=== PATIENT | female | born 1975 | race Caucasian/White ===

== ENCOUNTER 2020-06-29 11:52 | Outpatient (CLI) | payer OTHER, SELFPAY ==
--- NOTE | ~2020-06-29 | MM_ITS ---
EXAMINATION: MM screening [facility] BI w [facility] HISTORY: Screening TECHNIQUE: Craniocaudal and mediolateral oblique 3-D tomosynthesis images were obtained and synthetic 2-D images were generated. CAD analysis was submitted and interpreted. COMPARISON: Comparison to multiple prior studies sequentially, with oldest reviewed study dated 09/21. BREAST PARENCHYMAL COMPOSITION: There are scattered areas of fibroglandular density. FINDINGS: There is no evidence of suspicious mass, calcification, or architectural distortion to sugg est malignancy in either breast. There has been no suspicious interval change. IMPRESSION: 1. No mammographic evidence of malignancy. 2. Recommend routine screening mammography in one year. BI-RADS Category 1: Negative Reviewed, dictated and finalized at location A.
== END 2020-06-29 11:53 | disposition home or self-care (01) ==
LOC: ANHIMG 11:56
PROVIDERS: PCP Family Medicine; Visit Provider Obstetrics & Gynecology
DX: Z12.31 Encounter for screening mammogram for malignant neoplasm of breast (principal)
CPT/HCPCS: 77063; 77067

== ENCOUNTER 2020-07-06 01:14 | Outpatient (CLI) | payer OTHER, SELFPAY ==
[2020-07-06 18:28] LABS: SARS-CoV-2 RNA PCR Negative
== END 2020-07-06 01:15 | disposition home or self-care (01) ==
LOC: ANHCOVIDDT 01:14
PROVIDERS: PCP Family Medicine; Visit Provider Orthopaedic Surgery
DX: Z01.812 Encounter for preprocedural laboratory examination (principal); Z20.828 Contact with and (suspected) exposure to other viral communicable diseases
CPT/HCPCS: 87635; C9803; U0003

== ENCOUNTER 2020-07-07 01:14 | Day surgery (SDC) | payer OTHER, SELFPAY ==
[2020-07-05 11:03] VITALS: BMI 42.0
[2020-07-07] VITALS (9 sets, daily range): BP systolic 137–164; BP diastolic 84–110; PULSE 68–95; RESP 10–18; TEMP 36.3–36.4; O2SAT 92–100
--- NOTE | ~2020-07-07 | XR_ITS ---
EXAMINATION: XR surgery orthopedic DATE: 07/07/2020 13:26 INDICATION: ORIF right ankle fracture TECHNIQUE: 5 fluoroscopic spot images of the right lower leg were obtained during procedure performed by Dr. Chavez. Radiologist was not present for the imaging or procedure. The amount of fluoroscopy time used during this procedure was 1.0 minutes. COMPARISON: 07/05/2020 FINDINGS: Reduction to essentially anatomic alignment of the fracture subluxation at the right ankle. The media l malleolar fractures fixed with a pair of cannulated lag screws. There are also a pair of tightrope type syndesmotic wire fixations extending across the distal metaphyseal regions of the tibia and fibu la. The mildly comminuted fractures of the proximal metadiaphyseal region of the right fibula remains unfixed with unchanged mild displacement and angulation. Joint spaces appear normal with a congruent ankle mortise. IMPRESSION: 1. Near-anatomic alignment at the right ankle post internal fixation of a medial malleolar fracture a nd syndesmotic fixation at the distal tibia and fibula. 2. Unchanged mild displacement and angulation and a mildly comminuted fractures of the proximal fibul a which remains unfixed. Reviewed, dictated and finalized at location A. IMPRESSION: 1. Near-anatomic alignment at the right ankle post internal fixation of a media l malleolar fracture and syndesmotic fixation at the distal tibia and fibula. 2. Unchanged mild displacement and angulation and a mildly comminuted fractures of the proximal fibula which remains unfixed.
--- NOTE | 2020-07-07 07:07 | WPDHPUPDATE1 ---
History and Physical Update Update Date/Time: 07/07/20 07:07 History and Physical has been reviewed, including an updated exam of the patient. There are NO changes in the patient's condition. Covid test negative. Risks, benefits, and alternatives have been discussed and questions answered. Patient agrees to proceed with procedure.
--- NOTE | 2020-07-07 09:55 | WPDANESEPPF ---
Anes - Initial Pre Proc Eval Procedure: Operation Date: 07/07/20 11:30 Proposed Procedures p Open Reduction Internal Fixation Right Ankle Fracture With Syndesmosis - Luke Chavez MD Date/Time: 07/07/20 09:55 Surgeon: Luke Chavez MD Pre Op Diagnosis: Rt Ankle Fx/ Syndesmosis Disruption Patient Data Age: 45 Gender: F Height: 5 ft Weight: 96.6 kg Allergies Allergy/AdvReac Type Severity Reaction Status Date / Time Penicillins Allergy Severe Rash Verified 07/07/20 09:30 hydrocodone AdvReac Severe nausea/vomi Verified 07/07/20 09:30 ting Home Medications Medication Instructions Recorded Confirmed Type cetirizine 10 mg tablet 10 mg PO DAILY 09/01/19 07/07/20 History atorvastatin 20 mg tablet 20 mg PO DAILY #90 tablet 02/09/20 07/07/20 Rx levothyroxine 25 mcg tablet 25 mcg PO DAILY #90 tablet 02/11/20 07/07/20 Rx tramadol 50 mg tablet 50 mg PO Q4H PRN #30 tablet 07/05/20 07/07/20 Rx Patient hx anesthesia problems: none Family hx anesthesia problems: none PMFSH Past Medical History Medical History (Updated 07/05/20 @ 15:12 by Chana De La Torre, RT(R)) Ankle syndesmosis disruption Asthma Bimalleolar fracture of right ankle Dizziness Fracture of proximal end of fibula High cholesterol Hypothyroidism Seasonal allergies Vertigo Vision abnormalities Family History Family History (Updated 07/05/20 @ 15:12 by Chana De La Torre RT(R)) Mother Hypertension Sibling Hypertension Grandparent Diabetes mellitus Other Family history of malignant neoplasm of breast Heart disease Social History Social History Smoking status: Never smoker Alcohol intake: current Drinks per week: 4 Spiritual care concerns: No Anes - Eval Final PreProcedure Day of Procedure 07/07/20 09:55 Patient weight: morbidly obese Heart: regular rate and rhythm Lungs: clear to auscultation Airway: Mallampati scale class III Neurological: alert and oriented Last oral intake: >/= 8 hours ASA classification: III Emergent: no Anesthetic plan: proceed Anesthesia type and monitoring: general LMA and standard monitoring Informed Consent: The patient's anesthetic plan and its attendant risks and benefits were discussed with the patient/family/POA. Questions were solicited and answers provided to the satisfaction of the patient/family/POA.
[2020-07-07] MEDS: LACTATED RINGERS 1,000 ML 30 ML IV CONT ×2 (10:08→13:44)
[2020-07-07] MEDS: KETOROLAC 15 MG/ML VIAL (*BKC) IV PUSH (10:09)
--- NOTE | 2020-07-07 11:34 | ECG_ITS ---
Measurements Intervals Likely Rate: 76 P: 29 SC: 158 QRS: 0 QRSD: 91 T: -4 QT: 377 QTc: 425 Interpretive Statements SINUS RHYTHM LOW QRS VOLTAGE IN PRECORDIAL LEADS BORDERLINE T WAVE ABNORMALITY- INFERIOR LEADS BORDERLINE ECG Electronically Signed On 07-07-2020 12:09:17 CDT by Cj Vu D.O.
[2020-07-07] MEDS: CLINDAMYCIN 900 MG/NS 50 ML 900 MG/50 ML PIGGYBACK 50 MG IVPB (11:52)
--- NOTE | 2020-07-07 13:49 | PM.PROC ---
Procedure Note - Detailed Date of procedure: 07/07/20 Pre-op diagnosis: Rt Ankle Fx/ Syndesmosis Disruption Post-op diagnosis: same Procedure performed: Open reduction internal fixation right medial malleolus fracture, syndesmosis disruption Description of procedure: Operative indications: Patient is a 45 year-old woman who sustained an injury to the right ankle. Radiographs show Medial malleolus fracture with displacement and posterior malleolus fracture. Widening of the ankle mortise noted. disruption of the distal syndesmosis with proximal fibula fracture. Patient presents for operative treatment. Full discussion of the risks, benefits and alternatives of surgery was had with the patient. Questions answered. Patient verbalizes understanding and wishes to proceed. What was done: After informed consent, the operative extremity was marked in the preoperative holding area. Patient received intravenous antibiotics. Patient was then taken to the operating room and underwent general anesthesia by the anesthesia team. Positioned supine on the operating room table with a soft bump under the ipsilateral hip. A time-out was performed confirming the patient, site of the surgery, operative plan. Lower extremity then prepped and draped in the usual sterile surgical fashion using ChloraPrep skin solution. Foot and ankle exsanguinated and a thigh tourniquet inflated to 250 mmHg. Longitudinal incision made over the lateral ankle distal fibula with a 15 blade knife. Hemostasis controlled with electrocautery. Full-thickness soft tissue flaps developed and the fascia was incised in line with the skin incision. Syndesmosis reduced and held with bone-holding clamp. Image intensification confirmed reduction of the proximal fibula fracture and the ankle mortise/ and syndesmosis. Fixation achieved with the Arthrex tight rope system. A 2 hole plate was positioned on the lateral fibula. Guide pins were then placed through the plate, fibula and across the tibia. Image intensification confirmed alignment and direction of the syndesmosis fixation. Tight ropes and passed after drilling and the suture button tight and laterally. Foot was held in dorsiflexion at the ankle during tightening. Image intensification confirmed placement of the hardware and reduction of the syndesmosis. Wounds thoroughly irrigated with antibiotic solution of the fascia repaired with 2 Vicryl interrupted suture. Subcutaneous tissue repaired with 3 0 Monocryl interrupted suture and skin repaired with 4 nylon running suture. Medial malleolus fracture then addressed. Longitudinal incision made with a 15 blade knife over the medial malleolus fracture. Hemostasis controlled with electrocautery. Fascia incised in line with skin incision. Periosteum cleared from the medial malleolus fracture. Medial side of the joint inspected and noted to have mild amount of trauma to the chondral surface. Thorough irrigation of the ankle joint and suctioned out. Fracture reduced and provisionally pinned. Fixation achieved with 4.0 mm partially threaded cancellous screws x2 placed in cannulated screw fashion. Image intensification confirmed reduction of the fracture and placement of the hardware. Stress of the ankle performed with good stability of the ankle mortise in all directions. Posterior malleolus noted to be reduced and stable. Wounds thoroughly irrigated with antibiotic solution. Fascia repaired with 00 Vicryl interrupted suture. Subcutaneous tissue repaired with 000 Monocryl interrupted suture and Skin approximated with Four O nylon running suture. Sterile dressings applied followed by bulky dressing and splint. Patient awoken from anesthesia, extubated and taken to the recovery room in stable condition. All sponge, needle and instrument counts correct at the end of the case. Palpable dorsalis pedis pulse noted prior to dressing. Implants: Arthrex 4.0 mm partially threaded cannulated screws x2 and Arthrex tight
--- NOTE | 2020-07-07 16:35 | SUR.PHASEI ---
DR ZAMORA AWARE OF BP. NO INTERVENTION AT THIS TIME. 1441 07/07/2020.
== END 2020-07-07 16:00 | disposition home or self-care (01) ==
PROVIDERS: PCP Family Medicine; Visit Provider Orthopaedic Surgery
PROC: (CPT 27814; principal; 2020-07-07 11:30)
DX: S82.841A Displaced bimalleolar fracture of right lower leg, initial encounter for closed fracture (principal); W17.89XA Other fall from one level to another, initial encounter; Z88.0 Allergy status to penicillin
CPT/HCPCS: 27814; 93005; 97161; C1713; C1769; J1100; J1170; J1885; J2250; J2405; J2704; J3010; J7120

== ENCOUNTER 2021-10-26 08:04 | Outpatient (CLI) | payer OTHER, SELFPAY ==
--- NOTE | ~2021-10-26 | MM_ITS ---
EXAMINATION: MM screening [facility] BI w [facility] HISTORY: Screening mammogram TECHNIQUE: Craniocaudal and mediolateral oblique 3-D tomosynthesis images were obtained and synthetic 2-D images were generated. CAD analysis was submitted and interpreted. COMPARISON: 06/29/2020, 05/14/2017, 05/12/2016 bilateral screening mammogram examinations BREAST PARENCHYMAL COMPOSITION: There are scattered areas of fibroglandular density. FINDINGS: There is no evidence of suspicious mass, calcification, or architectural distortion to sugg est malignancy in either breast. There has been no suspicious interval change. IMPRESSION: 1. No mammographic evidence of malignancy. 2. Recommend routine screening mammography in one year. BI-RADS Category 1: Negative Reviewed, dictated and finalized at location A. OPEDIC TECH
== END 2021-10-26 08:05 | disposition home or self-care (01) ==
LOC: ANHIMG 08:06
PROVIDERS: PCP Family Medicine; Visit Provider Obstetrics & Gynecology
DX: Z12.31 Encounter for screening mammogram for malignant neoplasm of breast (principal)
CPT/HCPCS: 77063; 77067

== ENCOUNTER 2022-12-26 08:18 | Outpatient (CLI) | payer OTHER, SELFPAY ==
--- NOTE | ~2022-12-26 | MM_ITS ---
EXAMINATION: MM screening [facility] BI w seema HISTORY: Screening mammogram TECHNIQUE: Craniocaudal and mediolateral oblique 3-D tomosynthesis images were obtained and synthetic 2-D images were generated. CAD analysis was submitted and interpreted. COMPARISON: 10/26/2021, 06/29/2020, 05/14/2017 BREAST PARENCHYMAL COMPOSITION: There are scattered areas of fibroglandular density. FINDINGS: No suspicious mass, calcification, or architectural distortion are identified in either aleyda ast to suggest malignancy. There has been no suspicious interval change. IMPRESSION: 1. No mammographic evidence of malignancy. 2. Recommend routine screening mammography in one year. BI-RADS Category 1: Negative Reviewed, dictated and finalized at location A. OR DESIGN ENGINEER
== END 2022-12-26 08:19 | disposition home or self-care (01) ==
LOC: ANHIMG 08:20
PROVIDERS: PCP Family Medicine; Visit Provider Obstetrics & Gynecology
DX: Z12.31 Encounter for screening mammogram for malignant neoplasm of breast (principal)
CPT/HCPCS: 77063; 77067

== ENCOUNTER 2024-01-03 00:05 | Day surgery (SDC) | payer BC, SELFPAY ==
[2023-12-25 11:52] VITALS: BMI 32.7
--- NOTE | 2024-01-01 08:53 | SUR.PREOP ---
Patient called regarding upcoming procedure. Reviewed preop instructions, appointment times, and procedure prep.
[2024-01-03 08:30] VITALS: BP 136/92; PULSE 79; RESP 18; TEMP 35.9; O2SAT 100; BMI 31.7
[2024-01-03] MEDS: LACTATED RINGERS 1,000 ML 150 ML IV CONT (08:50)
--- NOTE | 2024-01-03 09:28 | PM.HPGS ---
History of Present Illness History of Present Illness Consent: Risks, benefits, and alternatives have been discussed and questions answered. Patient agrees to proceed with procedure. Chief complaint: neoplasm screening Narrative: Ailyn Johnson is a 48 year old female here for first screening colonoscopy Review of Systems Review of Systems: All systems reviewed & are unremarkable except as noted in HPI and below PMFSH Past Medical History Medical History Acute bronchitis due to other specified organisms Alcohol use Ankle syndesmosis disruption Asthma Bimalleolar fracture of right ankle Blood pressure check BMI 31.0-31.9,adult BMI 38.0-38.9,adult BMI greater than 40 BMI greater than 40 Chronic GERD Dietary counseling and surveillance (07/10/16) Dizziness Elevated blood pressure reading Elevated glucose Encounter for general adult medical examination without abnormal findings Encounter for screening for diabetes mellitus Encounter for wellness examination Essential hypertension Folate deficiency Fracture of proximal end of fibula High cholesterol Hypothyroidism Mixed hyperlipidemia Other abnormality of red blood cells Right upper quadrant abdominal tenderness with rebound tenderness Screening for colon cancer Screening for thyroid disorder Seasonal allergies Vertigo Vision abnormalities Vitamin D deficiency Wheezy bronchitis Family History Family History Mother Hypertension Sibling Hypertension Obesity Grandparent Diabetes mellitus Father , ALS No problems noted. Other Family history of malignant neoplasm of breast Heart disease Social History Social History Smoking status: Never smoker Second hand tobacco smoke exposure: Yes Alcohol intake: current Drinks per week: 7 Substance use: never Substance use type: does not use Do You Feel Safe in your Home?: Yes Lack of Transportation: No Lack of Food: Never True Current Housing: I Have Housing Concerned About Future Housing: No Difficulty Paying Gas/Electric Bills: No Difficulty Paying for Meds: No Currently Unemployed: No Education: High School Diploma/GED Difficulty w/ Childcare or Family Care: No Living arrangements: with family Occupation/Education: occupation Additional occupation/education comments: accounting Spiritual care concerns: No Meds Home Medications and Allergies Home Medications Medication Instructions Recorded Confirmed Type cetirizine 10 mg tablet (Zyrtec) 10 mg PO DAILY 09/01/19 01/03/24 History famotidine 20 mg tablet (Pepcid) 20 mg PO QHS #30 tabs 05/01/22 01/03/24 Rx fluticasone propionate 50 1 spray intranasal DAILY 05/16/22 01/03/24 History mcg/actuation nasal spray,suspension (Flonase Allergy Relief) levothyroxine 75 mcg tablet See Rx Instructions .Route 10/30/23 01/03/24 Rx .COMPLEX #90 tabs lisinopril 10 1 tablet PO DAILY #90 tabs 10/30/23 01/03/24 Rx mg-hydrochlorothiazide 12.5 mg tablet atorvastatin 20 mg tablet 40 mg PO DAILY #90 tabs 11/20/23 01/03/24 Rx Allergies Allergy/AdvReac Type Severity Reaction Status Date / Time Penicillins Allergy Severe Rash Verified 01/03/24 08:37 hydrocodone AdvReac Severe nausea/vomi Verified 01/03/24 08:37 ting ibuprofen AdvReac Nausea and Verified 01/03/24 08:37 Vomiting Vital Signs Vital Signs - 24 hr 01/03/24 08:30 Temperature 96.7 F L Pulse Rate 79 Respiratory Rate 18 Blood Pressure 136/92 H Pulse Oximetry 100 Oxygen Delivery Room Air Exam Const: General: comfortable and no acute distress HENMT: Face/Nose/Sinus: Normal nares present Eyes: General: appearance normal, both eyes and all related structures Neck: Neck: no JVD Resp: Auscultation: clear to auscultation bilaterally
--- NOTE | 2024-01-03 09:33 | WPDANESEPPF ---
Anes - Initial Pre Proc Eval Procedure: Operation Date: 01/03/24 09:30 Proposed Procedures p Screening Colonoscopy - Kali Hernadez MD Date/Time: 01/03/24 09:33 Surgeon: Kali Hernadez MD Pre Op Diagnosis: neoplasm screening Patient Data Age: 48 Gender: F Height: 1.52 m Weight: 73.7 kg Last Vital Signs Temp 96.7 F L 01/03/24 08:30 Pulse 79 01/03/24 08:30 Resp 18 01/03/24 08:30 BP 136/92 H 01/03/24 08:30 Pulse Ox 100 01/03/24 08:30 O2 Del Method Room Air 01/03/24 08:30 Allergies Allergy/AdvReac Type Severity Reaction Status Date / Time Penicillins Allergy Severe Rash Verified 01/03/24 08:37 hydrocodone AdvReac Severe nausea/vomi Verified 01/03/24 08:37 ting ibuprofen AdvReac Nausea and Verified 01/03/24 08:37 Vomiting Home Medications Medication Instructions Recorded Confirmed Type cetirizine 10 mg tablet (Zyrtec) 10 mg PO DAILY 09/01/19 01/03/24 History famotidine 20 mg tablet (Pepcid) 20 mg PO QHS #30 tabs 05/01/22 01/03/24 Rx fluticasone propionate 50 1 spray intranasal DAILY 05/16/22 01/03/24 History mcg/actuation nasal spray,suspension (Flonase Allergy Relief) levothyroxine 75 mcg tablet See Rx Instructions .Route 10/30/23 01/03/24 Rx .COMPLEX #90 tabs lisinopril 10 1 tablet PO DAILY #90 tabs 10/30/23 01/03/24 Rx mg-hydrochlorothiazide 12.5 mg tablet atorvastatin 20 mg tablet 40 mg PO DAILY #90 tabs 11/20/23 01/03/24 Rx Patient hx anesthesia problems: none Family hx anesthesia problems: none Results Review: All pre-operative results and documents have been reviewed as part of the pre-operative evaluation. [facility] Past Medical History Medical History Acute bronchitis due to other specified organisms Alcohol use Ankle syndesmosis disruption Asthma Bimalleolar fracture of right ankle Blood pressure check BMI 31.0-31.9,adult BMI 38.0-38.9,adult BMI greater than 40 BMI greater than 40 Chronic GERD Dietary counseling and surveillance (07/10/16) Dizziness Elevated blood pressure reading Elevated glucose Encounter for general adult medical examination without abnormal findings Encounter for screening for diabetes mellitus Encounter for wellness examination Essential hypertension Folate deficiency Fracture of proximal end of fibula High cholesterol Hypothyroidism Mixed hyperlipidemia Other abnormality of red blood cells Right upper quadrant abdominal tenderness with rebound tenderness Screening for colon cancer Screening for thyroid disorder Seasonal allergies Vertigo Vision abnormalities Vitamin D deficiency Wheezy bronchitis Family History Family History Mother Hypertension Sibling Hypertension Obesity Grandparent Diabetes mellitus Father , ALS No problems noted. Other Family history of malignant neoplasm of breast Heart disease Social History Social History Smoking status: Never smoker Second hand tobacco smoke exposure: Yes Alcohol intake: current Drinks per week: 7 Substance use: never Substance use type: does not use Do You Feel Safe in your Home?: Yes Lack of Transportation: No Lack of Food: Never True Current Housing: I Have Housing Concerned About Future Housing: No Difficulty Paying Gas/Electric Bills: No Difficulty Paying for Meds: No Currently Unemployed: No Education: High School Diploma/GED Difficulty w/ Childcare or Family Care: No Living arrangements: with family Occupation/Education: occupation Additional occupation/education comments: accounting Spiritual care concerns: No Anes - Eval Final PreProcedure Day of Procedure 01/03/24 09:33 Patient weight: normal Heart: regular rate and rhythm Lungs: clear to auscultation Airway: Mal
[2024-01-03 09:54] VITALS: BP 126/84; PULSE 68; RESP 16; O2SAT 100
[2024-01-03 10:04] VITALS: BP 122/77; PULSE 63; RESP 14; O2SAT 100
[2024-01-03 10:14] VITALS: BP 132/78; PULSE 60; RESP 16; O2SAT 100
== END 2024-01-03 10:17 | disposition home or self-care (01) ==
PROVIDERS: PCP Family Medicine; Visit Provider Internal Medicine Gastroenterology
PROC: 0DJD8ZZ Inspection of Lower Intestinal Tract, Via Natural or Artificial Opening Endoscopic (ICD-10-PCS; CPT 45378; principal; 2024-01-03 09:30)
DX: Z12.11 Encounter for screening for malignant neoplasm of colon (principal); K57.30 Diverticulosis of large intestine without perforation or abscess without bleeding; K64.8 Other hemorrhoids; K21.9 Gastro-esophageal reflux disease without esophagitis; E03.9 Hypothyroidism, unspecified; E78.00 Pure hypercholesterolemia, unspecified
CPT/HCPCS: 45378; J2704; J7120

== ENCOUNTER 2024-01-07 15:00 | Outpatient (CLI) | payer BC, SELFPAY ==
--- NOTE | ~2024-01-07 | MM_ITS ---
EXAMINATION: MM screening [facility] BI w [facility] HISTORY: Screening TECHNIQUE: Craniocaudal and mediolateral oblique 3-D tomosynthesis images were obtained and synthetic 2-D images were generated. CAD analysis was submitted and interpreted. COMPARISON: Comparison to multiple prior studies sequentially, with oldest reviewed study dated 09/21. BREAST PARENCHYMAL COMPOSITION: Not dense: There are scattered areas of fibroglandular density. FINDINGS: There is no evidence of suspicious mass, calcification, or architectural distortion to sugg est malignancy in either breast. There has been no suspicious interval change. IMPRESSION: 1. No mammographic evidence of malignancy. 2. Recommend routine screening mammography in one year. BI-RADS Category 1: Negative Reviewed, dictated and finalized at location A.
== END 2024-01-07 15:01 | disposition home or self-care (01) ==
LOC: ANHIMG 15:01
PROVIDERS: PCP Family Medicine; Visit Provider Obstetrics & Gynecology
DX: Z12.31 Encounter for screening mammogram for malignant neoplasm of breast (principal)
CPT/HCPCS: 77063; 77067

== ENCOUNTER 2024-08-06 09:34 | Outpatient (CLI) | payer BC, SELFPAY ==
--- NOTE | 2024-08-06 09:40 | ECG_ITS ---
Test Date: 2024-08-06 10:00:35 Measurements Intervals [place] Rate: 66 P: 39 KS: 165 QRS: 18 QRSD: 92 T: 23 QT: 386 QTc: 407 Interpretive Statements SINUS RHYTHM LOW QRS VOLTAGE IN PRECORDIAL LEADS [QRS DEFLECTION < 1.0 mV IN CHEST LEADS] No previous ECG available for comparison Electronically Signed On 08-06-2024 10:22:27 CDT by Renetta Geronimo M.D.
[2024-08-06 10:17] LABS: Basophils Percent Auto 0.6 % (0.2-1.2); Eosinophils Absolute Auto 0.1 K/mm3 (0-0.3); Eosinophils Percent Auto 2.7 % (0-4.4); Hematocrit 42.6 % (37.0-47.0); Hemoglobin 14.2 g/dL (12.0-15.0); Immature Granulocyte Absolute 0.02 K/mm3 (0.00-0.031); Immature Granulocyte Percent A 0.4 % (0-0.5); Mean Corpuscular HGB Conc 33.3 g/dl (32-36); Mean Corpuscular Volume 104.9 fl (80-100); Mean Platelet Volume 11.3 fl (7.4-10.4); Monocytes Absolute Auto 0.7 K/mm3 (0.1-0.6); Monocytes Percent Auto 13.7 % (2.6-8.5); Neutrophils Absolute Auto 2.4 K/mm3 (1.3-6.7); Neutrophils Percent Auto 44.6 % (45.5-73.1); Platelet Count Result 178 k/mm3 (150-375); Red Blood Count 4.06 M/mm3 (4.2-5.4); Red Cell Distribution Width 12.3 % (11.5-14.5); White Blood Count 5.3 K/mm3 (4.5-10.0)
[2024-08-06 10:32] LABS: Anion Gap 9 mmol/L (4-12); Blood Urea Nitrogen 17 mg/dL (7-17); Calcium 9.7 mg/dL (8.4-10.2); Carbon Dioxide 28 mmol/L (22-30); Chloride 102 mmol/L (98-107); Estimated Glomerular Filt Rate > 60; Glucose 94 mg/dL (65-110); Potassium 4.1 mmol/L (3.4-5.0); Sodium 139 mmol/L (137-145)
== END 2024-08-06 09:35 | disposition home or self-care (01) ==
LOC: ANHSURGERY 09:39
PROVIDERS: Anesthesiology; PCP Family Medicine; Visit Provider Obstetrics & Gynecology
DX: N81.4 Uterovaginal prolapse, unspecified (principal); E78.5 Hyperlipidemia, unspecified; I10 Essential (primary) hypertension; Z79.899 Other long term (current) drug therapy
CPT/HCPCS: 36415; 80048; 85025; 86850; 86900; 86901; 93005

== ENCOUNTER 2024-08-14 00:33 | Day surgery (SDC) | payer BC, SELFPAY ==
[2024-08-05 13:50] VITALS: BMI 33.0
--- NOTE | 2024-08-05 13:51 | PC.NURSE ---
Report to the Outpatient Waiting Room, entrance under the green pavilion located off [facility], at time _0600_ on date _[id number]_. Planned Procedure Time: _0730_.? Time changes happen often and if your time is changed the preop area will call you the afternoon before. - You and your visitor will be asked to self-screen and do not enter if you have any COVID symptoms. Please call surgeon if you need to reschedule. - A mask is optional within the hospital at this time. Patients may have clear liquids (water, carbonated beverages, clear teas, apple juice) until 3 hours prior to surgery with a maximum of 20 ounces. - No food from midnight until time of surgery and no smoking Take only the following medications with a SIP of water on the morning of surgery____Levothyroxine and Flonase DO NOT STOP ANY OF YOUR OTHER PRESCRIPTION MEDICATIONS PRIOR TO SURGERY EXCEPT THE FOLLOWING Medications to discontinue per physician ___None Please no make-up, nail german, hairspray, perfume, deodorant, or body powder the day of surgery.? No jewelry (including any body piercings) or valuables the day of surgery, leave them at home.? Please take a shower or bath the night before, or the morning of, surgery with an antibacterial soap.? Wear comfortable, loose fitting clothing.? - Jewelry must be removed prior to entering the operating room.? Rings and piercings that are not removed may be cut off. - The hospital will not accept responsibility for valuables.? - Please leave all valuables, including medications, at home the day of surgery. If you are going home after surgery, a licensed courtesy driver must drive you home.? - NO public transportation without another adult if you receive anesthesia. - We recommend that an adult stay with you for 24 hours following discharge. - We also recommend that you do not drive, make important decision, drink alcoholic beverages, or take any drugs that were not prescribed by your health care provider for at least 24 hours after your discharge time. Follow any additional instructions given to you from your surgeon. Telephone instructions given to __Ailyn__and asked if any additional questions and then verbalized understanding. Patient advised to call surgeon office or pre surgery nurse liaison [phone] if any additional questions.
--- NOTE | 2024-08-13 07:19 | PM.IMHP ---
H&P: HPI History of Present Illness Date/Time: 08/13/24 07:19 Chief Complaint: Pelvic pain/uterine/uterine prolapse Narrative: Is a 48 female with fibroids for hysterectomy salpingectomy she has enlarged uterus pelvic pain prolapse. Risks , aspiration pneumonia, bleeding, transfusion perforation injury to bladder, ureters, or other internal organs with need for open laparotomy. She received the AC handout hysterectomy as the Mary handout she had all questions answered. She asked to proceed PMF Past Medical History Medical History Acute bronchitis due to other specified organisms Alcohol use Ankle syndesmosis disruption Asthma Bimalleolar fracture of right ankle Blood pressure check BMI 31.0-31.9,adult BMI 38.0-38.9,adult BMI greater than 40 BMI greater than 40 Chronic GERD Dietary counseling and surveillance (07/10/16) Dizziness Elevated blood pressure reading Elevated glucose Encounter for general adult medical examination without abnormal findings Encounter for screening for diabetes mellitus Encounter for wellness examination Essential hypertension Folate deficiency Fracture of proximal end of fibula High cholesterol Hypothyroidism Mixed hyperlipidemia Other abnormality of red blood cells Right upper quadrant abdominal tenderness with rebound tenderness Screening for colon cancer Screening for thyroid disorder Seasonal allergies Vertigo Vision abnormalities Vitamin D deficiency Wheezy bronchitis Family History Family History Mother Hypertension Sibling Hypertension Obesity Grandparent Diabetes mellitus Father , ALS No problems noted. Other Family history of malignant neoplasm of breast Heart disease Social History Social History Smoking status: Never smoker Second hand tobacco smoke exposure: Yes Alcohol intake: current Drinks per week: 7 Substance use: never Substance use type: does not use Do You Feel Safe in your Home?: Yes Lack of Transportation: No Lack of Food: Never True Current Housing: I Have Housing Concerned About Future Housing: No Difficulty Paying Gas/Electric Bills: No Difficulty Paying for Meds: No Currently Unemployed: No Education: High School Diploma/GED Difficulty w/ Childcare or Family Care: No Living arrangements: with family Occupation/Education: occupation Additional occupation/education comments: accounting Spiritual care concerns: No Meds Home Medications and Allergies Home Medications Medication Instructions Recorded Confirmed Type cetirizine 10 mg tablet (Zyrtec) 10 mg PO DAILY 09/01/19 08/05/24 History famotidine 20 mg tablet (Pepcid) 20 mg PO QHS #30 tabs 05/01/22 08/05/24 Rx fluticasone propionate 50 1 spray intranasal DAILY 05/16/22 08/05/24 History mcg/actuation nasal spray,suspension (Flonase Allergy Relief) atorvastatin 20 mg tablet 40 mg PO DAILY #90 tabs 11/20/23 08/05/24 Rx levothyroxine 75 mcg tablet See Rx Instructions .Route 04/27/24 08/05/24 Rx .COMPLEX #90 tabs lisinopril 10 See Rx Instructions .Route 04/27/24 08/05/24 Rx mg-hydrochlorothiazide 12.5 mg .COMPLEX #90 tabs tablet Allergies Allergy/AdvReac Type Severity Reaction Status Date / Time Penicillins Allergy Severe Rash Verified 08/05/24 13:45 hydrocodone AdvReac Severe nausea/vomi Verified 08/05/24 13:45 ting ibuprofen AdvReac Nausea and Verified 08/05/24 13:45 Vomiting Exam Const: General: cooperative, healthy appearing, comfortable and overweight Orientation/consciousness: oriented to person, oriented to place and oriented to time HENMT: Head: normal to inspection Resp: Effort & Inspection: normal respiratory effort Cardio: Rate: regular rate Rhythm: regular rhythm Heart sounds: S1 normal heart sound present and S2 normal heart sound present GI: Inspection: normal to inspection : External Female Exam: normal external appearance Speculum Exam - Vagina: normal appearance of the vagina Speculum Exam - Cervix: normal appearance of the cervix (Second-degree prolapse present) Bimanual exam- vagina & uterus: enlarged Bimanual Exam- Adnexa, other: normal adnexae Assessment and Plan Assessment and plan (1) Pelvic pain: Code(s): R10.2 - Pelvic and perineal pain Status: Acute (2) Uterine prolapse: Code(s): N81.4 - Uterovaginal prolapse, unspecified Status: Acute (3) Uterine fibroid: Code(s): D25.9 - Leiomyoma of uterus, unspecified Status: Acute Assessment and Plan: Proceed with robotic total vaginal hysterectomy and bilateral salpingectomy
[2024-08-14] VITALS (10 sets, daily range): BP systolic 114–137; BP diastolic 70–88; PULSE 66–102; RESP 12–20; TEMP 36.4–36.8; O2SAT 95–100
--- NOTE | 2024-08-14 06:25 | WPDHPUPDATE1 ---
History and Physical Update Update Date/Time: 08/14/24 06:25 History and Physical has been reviewed, including an updated exam of the patient. There are NO changes in the patient's condition. Risks, benefits, and alternatives have been discussed and questions answered. Patient agrees to proceed with procedure.
[2024-08-14] MEDS: ACETAMINOPHEN 500 MG TABLET 1000 MG PO ×4 (06:36→23:50)
--- NOTE | 2024-08-14 06:46 | P.PNAN_ITS ---
Anes - Initial Pre Proc Eval Procedure: Operation Date: 08/14/24 07:30 Proposed Procedures p Robotic Assisted Total Vaginal Hysterectomy with Bilateral Salpingectomy - Ricky Cruz MD Date/Time: 08/14/24 06:46 Surgeon: Ricky Cruz MD Pre Op Diagnosis: second degree proplase, dyspareunia, pelvic pain Patient Data Age: 49 Gender: F Height: 1.52 m Weight: 76.8 kg Allergies Allergy/AdvReac Type Severity Reaction Status Date / Time Penicillins Allergy Severe Rash Verified 08/14/24 06:16 hydrocodone AdvReac Severe nausea/vomi Verified 08/14/24 06:16 ting ibuprofen AdvReac Nausea and Verified 08/14/24 06:16 Vomiting Home Medications Medication Instructions Recorded Confirmed Type cetirizine 10 mg tablet (Zyrtec) 10 mg PO DAILY 09/01/19 08/14/24 History famotidine 20 mg tablet (Pepcid) 20 mg PO QHS #30 tabs 05/01/22 08/14/24 Rx fluticasone propionate 50 1 spray intranasal DAILY 05/16/22 08/14/24 History mcg/actuation nasal spray,suspension (Flonase Allergy Relief) atorvastatin 20 mg tablet 40 mg PO DAILY #90 tabs 11/20/23 08/14/24 Rx levothyroxine 75 mcg tablet See Rx Instructions .Route 04/27/24 08/14/24 Rx .COMPLEX #90 tabs lisinopril 10 See Rx Instructions .Route 04/27/24 08/14/24 Rx mg-hydrochlorothiazide 12.5 mg .COMPLEX #90 tabs tablet oxycodone-acetaminophen 5 mg-325 1 tablet PO Q4H PRN pain #20 tabs 08/14/24 Rx mg tablet (Endocet) Patient hx anesthesia problems: none Family hx anesthesia problems: none Results Review: All pre-operative results and documents have been reviewed as part of the pre- operative evaluation. [facility] Past Medical History Medical History Acute bronchitis due to other specified organisms Alcohol use Ankle syndesmosis disruption Asthma Bimalleolar fracture of right ankle Blood pressure check BMI 31.0-31.9,adult BMI 38.0-38.9,adult BMI greater than 40 BMI greater than 40 Chronic GERD Dietary counseling and surveillance (07/10/16) Dizziness Elevated blood pressure reading Elevated glucose Encounter for general adult medical examination without abnormal findings Encounter for screening for diabetes mellitus Encounter for wellness examination Essential hypertension Folate deficiency Fracture of proximal end of fibula High cholesterol Hypothyroidism Mixed hyperlipidemia Other abnormality of red blood cells Right upper quadrant abdominal tenderness with rebound tenderness Screening for colon cancer Screening for thyroid disorder Seasonal allergies Vertigo Vision abnormalities Vitamin D deficiency Wheezy bronchitis Family History Family History Mother Hypertension Sibling Hypertension Obesity Grandparent Diabetes mellitus Father , ALS No problems noted. Other Family history of malignant neoplasm of breast Heart disease Social History Social History Smoking status: Never smoker Second hand tobacco smoke exposure: Yes Alcohol intake: current Drinks per week: 7 Substance use: never Substance use type: does not use Do You Feel Safe in your Home?: Yes Lack of Transportation: No Lack of Food: Never True Current Housing: I Have Housing Concerned About Future Housing: No Difficulty Paying Gas/Electric Bills: No Difficulty Paying for Meds: No Currently Unemployed: No Education: High School Diploma/GED Difficulty w/ Childcare or Family Care: No Living arrangements: with family Occupation/Education: occupation Additional occupation/education comments: accounting Spiritual care concerns: No Anes - Eval Final PreProcedure Day of Procedure 08/14/24 06:46 Patient weight: obese Heart: regular rate and rhythm Lungs: clear to auscultation Airway: Mallampati scale class II Neurological: alert and oriented Last oral intake: >/= 8 hours ASA classification: III Emergent: no Anesthetic plan: proceed Anesthesia type and monitoring: general ETT and standard monitoring Results Review: All pre-operative results and documents have been reviewed as part of the pre- operative evaluation. Informed Consent: The patient's anesthetic plan and its attendant risks and benefits were discussed with the patient/family/POA. Questions were solicited and answers provided to the satisfaction of the patient/family/POA.
[2024-08-14] MEDS: LACTATED RINGERS 1,000 ML 30 ML IV CONT ×2 (06:50→08:37)
[2024-08-14] MEDS: KETOROLAC 15 MG/ML VIAL (*BKC) IV PUSH (07:17)
[2024-08-14] MEDS: ceFAZolin 2 GM/D5W 50 ML 2 GM/50 ML BAG IVPB (07:30)
--- NOTE | 2024-08-14 08:23 | W.PM.PROC2 ---
Procedure Note - Detailed Date of Procedure 08/14/24 Pre-op Diagnosis second degree proplase, dyspareunia, pelvic pain Post-op Diagnosis Same Procedure Performed Robotic total vaginal hysterectomy and bilateral salpingectomy Surgeon Ricky Cruz MD Anesthesia General Indications 49-year-old female with prolapse pain and despite Findings mildly enlarged uterus with second-degree prolapse. Normal-appearing ovaries and tubes. Description of Procedure The patient was prepped and draped in the normal sterile fashion placed in the dorsal lithotomy position. Under excellent general endotracheal anesthesia weighted speculum placed in posterior fornix vagina. Anterior lip of the cervix grasped with a single-tooth tenaculum. Uterus sounded to 8cm. Serial dilatation with fragmented dilators performed followed by passes the 8. JUVE and the 2. 0.5 cold cup. Next the 16 [place] catheter was placed in the bladder. The weighted speculum and single-tooth removed and the gloves were changed. Supraumbilical incision made the Veress needle passed in the abdomen. Abdomen filled with CO2 gas [id number]. The 8mm trocar advanced in the abdomen. Downside visualized no injury seen. Patient placed in 18? of Trendelenburg and right left lateral quadrant incisions made. 8Mm trocars advanced under direct visualization assuring no injury. Right upper quadrant incision made the 8mm trocar advanced under direct visualization assuring no injury. The robot was docked. Attention was turned to the console. The left round ligament grasped, burned, cut. Anteriorly bladder flap was formed by sharply dissecting the peritoneum and bringing this laterally to the opposite round ligament retracting the bladder caudally to the right round ligament this was clamped, burned, cut. Next the left fallopian tube was sharply dissected away from the ovarian complex and left attached to its uterine origin. In similar fashion drawn the the right fallopian tube was dissected away from the ovary and left attached to the Uterine origin. The left utero-ovarian ligament was skeletonized to conserve the left ovary. This was clamped, burned, cut and brought to level of previously cut round ligament. In similar fashion on the right, the right utero-ovarian ligament was skeletonized conserving the right ovary. This was clamped, burned, cut brought to the level of previously cut round ligament. Next the cardinal broad ligaments on the left were skeletonized hugging the cervix uterus clamping burning cutting until the uterine vessels could be seen on the left. These were individually clamped, burned, cut. In similar fashion on the right the cardinal broad ligaments were skeletonized clamping burning cutting and hugging the cervix uterus until the uterine vessels could be seen on right. These were individually clamped, burned, cut. Excellent blanching was seen and a colpotomy incision was made. Cervix uterus and tubes removed through the vagina. Vagina then closed with continuous running 0V lock from lateral edge to lateral edge back to the midline. Irrigation undertaken to clear blood loss estimated [id number]. Hemostasis was assured the robot was undocked. The gas removed from the abdomen. Trocars removed the incisions closed with 4-0 Monocryl glue. Patient was awakened went recovery in satisfactory condition. All sponge, needle, instrument counts were correct. There were no immediate complications Estimated Blood Loss 25 Drains No Packing No Pathology Yes Complications No immediate complications Condition Stable Disposition PACU
--- NOTE | 2024-08-14 08:28 | PM.DS ---
DS: Admitting Diagnosis Discharge Date 2023 Admitting Diagnosis uterine prolapse and pelvic pain DS: Discharge Diagnosis Discharge Diagnosis (1) Uterine fibroid: Code(s): D25.9 - Leiomyoma of uterus, unspecified Status: Acute (2) Uterine prolapse: Code(s): N81.4 - Uterovaginal prolapse, unspecified Status: Acute (3) Pelvic pain: Code(s): R10.2 - Pelvic and perineal pain Status: Acute DS: Summary Hospital Course Reason for hospitalization: patient was admitted for robotic total vaginal hysterectomy bilateral salpingectomy on 08/14/2024. Procedure was unremarkable. Hospital Course: Patient's hospital course unremarkable. Over 24hour stay she remained afebrile. She was up, voiding without difficulty, eating regular diet, ambulating, and generally without complaints. Time Spent with Patient Time attestation: Total time spent providing and/or coordinating discharge services: Exam Const: General: cooperative, healthy appearing and comfortable Nutritional Appearance: average body habitus Orientation/consciousness: oriented to person, oriented to place and oriented to time HENMT: Head: normal to inspection Resp: Effort & Inspection: normal respiratory effort Cardio: Rate: regular rate Rhythm: regular rhythm Heart sounds: S1 normal heart sound present and S2 normal heart sound present GI: Inspection: normal to inspection and incision ( Wounds are clean dry and intact) DS: Data Data Completed and Pending Pending studies at discharge: Pending at discharge 08/14/24 08:15 Surgical [PTH] Routine Discharge Plan Discharge Patient Disposition: Home, Self-Care Stand Alone Forms: General Discharge Instructions Follow-up/Referrals: Ricky Bianchi MD [Physician] - Discharge Medications: New oxycodone-acetaminophen [Endocet] 5-325 mg tablet 1 tablet PO Q4H PRN (Reason: pain) Qty: 20 0RF No Action fluticasone propionate [Flonase Allergy Relief] 50 mcg/actuation spray,suspension 1 spray intranasal DAILY Rx Instructions: administer into each nostril cetirizine [Zyrtec] 10 mg tablet 10 mg PO DAILY famotidine [Pepcid] 20 mg tablet 20 mg PO QHS Qty: 30 2RF atorvastatin 20 mg tablet 40 mg PO DAILY Qty: 90 3RF levothyroxine 75 mcg tablet See Rx Instructions .ROUTE .COMPLEX Qty: 90 1RF Dose Instruction: TAKE 1 TABLET BY MOUTH DAILY Rx Instructions: TAKE 1 TABLET BY MOUTH DAILY lisinopril-hydrochlorothiazide 10-12.5 mg tablet See Rx Instructions .ROUTE .COMPLEX Qty: 90 3RF Dose Instruction: TAKE 1 TABLET DAILY Rx Instructions: TAKE 1 TABLET DAILY
[2024-08-14] MEDS: fentaNYL CITRATE INJ (*CRX) 100 MCG/2 ML VIAL 25 MCG IV PUSH ×4 (09:05→09:21)
--- NOTE | 2024-08-14 09:40 | ADMGEN ---
This patient, Ailyn Johnson, was admitted to OB 2nd Floor Room 289-00. Patient/family oriented to hospital policies and general routines including ID bracelet, bed and alarms, visiting hours, pain management, procedures, bathroom and other care routines, personal items, smoking policy, room service/diet, and visiting hours. Information on how to activate the Rapid Response Team has been discussed. Patient/Family are encouraged to report perceived risks to care and to ask questions if they do not understand what they are told or what they should do.
[2024-08-14] MEDS: DEXTROSE 5%/LACTATED RINGERS 1,000 ML 125 ML IV CONT (10:04)
[2024-08-14] MEDS: ONDANSETRON INJ 4 MG/2 ML VIAL IV PUSH (10:08)
[2024-08-14] MEDS: oxyCODONE HCL (*CRX) 5 MG TAB IR PO ×2 (11:09→15:15)
[2024-08-14] MEDS: SIMETHICONE 80 MG TAB.CHEW PO ×2 (12:04→17:35)
[2024-08-14] MEDS: ENOXAPARIN 40 MG/0.4 ML SYRINGE SUB-Q (12:04)
[2024-08-14] MEDS: DOCUSATE SODIUM 100 MG CAPSULE PO ×2 (12:04→17:35)
[2024-08-14] MEDS: KETOROLAC 30 MG/ML VIAL (*BKC) IV PUSH ×3 (12:05→23:50)
[2024-08-15 05:00] VITALS: BP 122/74; PULSE 80; RESP 18; TEMP 36.6; O2SAT 98
[2024-08-15] MEDS: ACETAMINOPHEN 500 MG TABLET 1000 MG PO (05:00)
[2024-08-15 05:29] LABS: Basophils Percent Auto 0.2 % (0.2-1.2); Eosinophils Percent Auto 0.1 % (0-4.4); Hematocrit 34.4 % (37.0-47.0); Hemoglobin 11.9 g/dL (12.0-15.0); Immature Granulocyte Absolute 0.03 K/mm3 (0.00-0.031); Immature Granulocyte Percent A 0.3 % (0-0.5); Lymphocytes Absolute Auto 1.26 K/mm3 (0.9-3.2); Lymphocytes Percent Auto 11.6 % (18.3-44.2); Mean Corpuscular HGB Conc 34.6 g/dl (32-36); Mean Corpuscular Hemoglobin 34.8 pg (26-34); Mean Corpuscular Volume 100.6 fl (80-100); Mean Platelet Volume 11.5 fl (7.4-10.4); Monocytes Absolute Auto 1.2 K/mm3 (0.1-0.6); Monocytes Percent Auto 11.4 % (2.6-8.5); Neutrophils Absolute Auto 8.3 K/mm3 (1.3-6.7); Neutrophils Percent Auto 76.4 % (45.5-73.1); Platelet Count Result 148 k/mm3 (150-375); Red Blood Count 3.42 M/mm3 (4.2-5.4); Red Cell Distribution Width 12.1 % (11.5-14.5); White Blood Count 10.8 K/mm3 (4.5-10.0)
[2024-08-15] MEDS: SIMETHICONE 80 MG TAB.CHEW PO (07:21)
[2024-08-15] MEDS: DOCUSATE SODIUM 100 MG CAPSULE PO (07:22)
[2024-08-15 07:30] VITALS: BP 133/90; PULSE 73; RESP 16; TEMP 36.5; O2SAT 100
--- NOTE | 2024-08-15 09:12 | P.PNAN_ITS ---
Anes - Prog Note Post-Op Date/Time: 08/15/24 09:12 Cardiovascular status: normal Respiratory status: normal Airway patency: baseline Mental status: baseline Post-Op hydration status: normal Vital Signs: Last Vital Signs Temp 36.5 C 08/15/24 07:30 Pulse 73 08/15/24 07:30 Resp 16 08/15/24 07:30 BP 133/90 08/15/24 07:30 Pulse Ox 100 08/15/24 07:30 O2 Del Method Room Air 08/15/24 05:00 O2 Flow Rate 8 08/14/24 08:37 Pain Score (VAS): 12/28 I/O: Intake & Output 08/14/24 08/15/24 08/15/24 23:59 07:59 15:59 Intake Total 1886 Output Total 800 Balance 1086 Laboratory Tests 08/15/24 04:52 08/15/24 04:52 WBC 10.8 H RBC 3.42 L Hgb 11.9 L Hct 34.4 L MCV 100.6 H MCH 34.8 H MCHC 34.6 RDW 12.1 Plt Count 148 L MPV 11.5 H Immature Gran % (Auto) 0.3 Neut % (Auto) 76.4 H Lymph % (Auto) 11.6 L [place] % (Auto) 11.4 H Eos % (Auto) 0.1 Baso % (Auto) 0.2 Lymph # (Auto) 1.26 [place] # (Auto) 1.2 H Eos # (Auto) 0.0 Baso # (Auto) 0.0 Abs Immat Gran (auto) 0.03 Absolute Neuts (auto) 8.3 H Absolute Nucleated RBC 0.000 Nucleated RBC % 0.0 Post-procedural complaints: nausea ( after procedure, patient states nausea has resolved this morning. ) Patient Feedback: Patient satisfied with anesthetic care.
--- NOTE | 2024-08-15 11:09 | PM.GYNPNOP ---
[facility] DIRECTOR - A/P Assessment and plan (1) Uterine fibroid: Code(s): D25.9 - Leiomyoma of uterus, unspecified Status: Acute Assessment and Plan: A: POD#1, doing well. P: Home to f/u 2 weeks. (2) Uterine prolapse: Code(s): N81.4 - Uterovaginal prolapse, unspecified Status: Acute (3) Pelvic pain: Code(s): R10.2 - Pelvic and perineal pain Status: Acute Postoperative Procedures: Procedures Operation Date: 08/14/24 07:30 Actual Procedure Side Surgeon p Robotic Assisted Total Vaginal Hysterectomy with Bilateral Salpingectomy Bilateral Ricky Cruz MD Time Spent With Patient Time with patient: less than 15 minutes [facility]- PN:Subj Post-Op Subjective Date/time seen: 08/15/24 11:09 Interval history: Pain OK. Tolerating diet. Voiding. Would like to go home. Exam Narrative: AVSS I/O OK ABD soft, nontender. Incisions c/d/i. EXT nontender [facility] DIRECT[facility] - PN: Obj Data Vital Signs Vital Signs: Vital Signs - 24 hr 08/14/24 15:00 08/14/24 15:00 08/14/24 19:05 Temperature 36.5 C 36.8 C Pulse Rate 102 H 93 Respiratory Rate 16 18 Blood Pressure 114/70 120/73 Pulse Oximetry 96 99 Oxygen Delivery Room Air 08/14/24 19:05 08/14/24 23:50 08/15/24 05:00 Temperature 36.6 C 36.6 C Pulse Rate 89 80 Respiratory Rate 18 18 Blood Pressure 117/73 122/74 Pulse Oximetry 98 Oxygen Delivery Room Air 08/15/24 05:00 08/15/24 07:30 Temperature 36.5 C Pulse Rate 73 Respiratory Rate 16 Blood Pressure 133/90 Pulse Oximetry 100 Oxygen Delivery Room Air Intake/Output Intake/Output: Intake & Output 08/12/24 08/13/24 08/14/24 08/15/24 23:59 23:59 23:59 23:59 Intake Total 2986 240 Output Total 1200 Balance 1786 240 Meds/Results Medications: Active Medications Generic Name Dose Route Start Last Admin Trade Name Freq PRN Reason Stop Dose Admin Acetaminophen 1,000 mg 08/14/24 12:00 08/15/24 05:00 Acetaminophen 500 Mg Tablet PO 1,000 mg Q6HR RAÚL Administration Docusate Sodium 100 mg 08/14/24 09:34 08/15/24 07:22 Docusate Sodium 100 Mg Capsule PO 100 mg BID RAÚL Administration Enoxaparin Sodium 40 mg 08/14/24 09:34 08/14/24 12:04 Enoxaparin 40 Mg/0.4 Ml Syringe SUB-Q 40 mg DAILY RAÚL Administration Ibuprofen 600 mg 08/15/24 06:00 08/15/24 07:22 Ibuprofen 600 Mg Tablet PO Not Given Q6HR [facility] Naloxone HCl 0.1 mg 08/14/24 09:34 Naloxone Hcl 0.4 Mg/Ml Vial IV PUSH Q2M PRN Respiratory rate less than 10 Ondansetron HCl 4 mg 08/14/24 09:34 08/14/24 10:08 Ondansetron Inj 4 Mg/2 Ml Vial IV PUSH 4 mg Q6H PRN Administration Nausea And Vomiting Oxycodone HCl 5 mg 08/14/24 09:34 08/14/24 15:15 Oxycodone Hcl (*Crx) 5 Mg Tab Ir PO 5 mg Q4H PRN Administration Pain Rated 4-6 Oxycodone HCl 10 mg 08/14/24 09:34 Oxycodone Hcl (*Crx) 5 Mg Tab Ir PO Q6H PRN Pain Rated 7-10 Simethicone 80 mg 08/14/24 12:00 08/15/24 07:21 Simethicone 80 Mg Tab.Chew PO 80 mg TIDWM RAÚL Administration Labs 08/15/24 04:52 Labs: Laboratory Results - last 24 hr 08/15/24 04:52 WBC 10.8 H RBC 3.42 L Hgb 11.9 L Hct 34.4 L MCV 100.6 H MCH 34.8 H MCHC 34.6 RDW 12.1 Plt Count 148 L MPV 11.5 H Immature Gran % (Auto) 0.3 Neut % (Auto) 76.4 H Lymph % (Auto) 11.6 L [place] % (Auto) 11.4 H Eos % (Auto) 0.1 Baso % (Auto) 0.2 Lymph # (Auto) 1.26 [place] # (Auto) 1.2 H Eos # (Auto) 0.0 Baso # (Auto) 0.0 Abs Immat Gran (auto) 0.03 Absolute Neuts (auto) 8.3 H Absolute Nucleated RBC 0.000 Nucleated RBC % 0.0
--- NOTE | 2024-08-15 11:10 | PM.DS ---
DS: Admitting Diagnosis Discharge Date 08/15/24 Admitting Diagnosis Uterine fibroid Prolapse Pelvic pain DS: Discharge Diagnosis Discharge Diagnosis (1) Uterine fibroid: Code(s): D25.9 - Leiomyoma of uterus, unspecified Status: Acute (2) Uterine prolapse: Code(s): N81.4 - Uterovaginal prolapse, unspecified Status: Acute (3) Pelvic pain: Code(s): R10.2 - Pelvic and perineal pain Status: Acute DS: Summary Hospital Course Hospital Course: Admitted on the date of scheduled surgery. See op note. She did well and was able to go home on POD1. DS: Data Data Completed and Pending Pending studies at discharge: Pending at discharge 08/14/24 08:15 Surgical [PTH] Routine Labs on day of discharge: Labs from last 24 hours 08/15/24 04:52 WBC 10.8 H RBC 3.42 L Hgb 11.9 L Hct 34.4 L MCV 100.6 H MCH 34.8 H MCHC 34.6 RDW 12.1 Plt Count 148 L MPV 11.5 H Immature Gran % (Auto) 0.3 Neut % (Auto) 76.4 H Lymph % (Auto) 11.6 L [place] % (Auto) 11.4 H Eos % (Auto) 0.1 Baso % (Auto) 0.2 Lymph # (Auto) 1.26 [place] # (Auto) 1.2 H Eos # (Auto) 0.0 Baso # (Auto) 0.0 Abs Immat Gran (auto) 0.03 Absolute Neuts (auto) 8.3 H Absolute Nucleated RBC 0.000 Nucleated RBC % 0.0 Discharge Plan Discharge Patient Disposition: Home, Self-Care Discharge Instructions: Call or return if temperature above 100.4? F, increased abdominal pain, increased vaginal bleeding or any new problems. Stand Alone Forms: General Discharge Instructions Follow-up/Referrals: Ricky Bianchi MD [Physician] - 2 Weeks Discharge Medications: New oxycodone-acetaminophen [Endocet] 5-325 mg tablet 1 tablet PO Q4H PRN (Reason: pain) Qty: 20 0RF Continued fluticasone propionate [Flonase Allergy Relief] 50 mcg/actuation spray,suspension 1 spray intranasal DAILY Rx Instructions: administer into each nostril cetirizine [Zyrtec] 10 mg tablet 10 mg PO DAILY famotidine [Pepcid] 20 mg tablet 20 mg PO QHS Qty: 30 2RF atorvastatin 20 mg tablet 40 mg PO DAILY Qty: 90 3RF levothyroxine 75 mcg tablet See Rx Instructions .ROUTE .COMPLEX Qty: 90 1RF Dose Instruction: TAKE 1 TABLET BY MOUTH DAILY Rx Instructions: TAKE 1 TABLET BY MOUTH DAILY lisinopril-hydrochlorothiazide 10-12.5 mg tablet See Rx Instructions .ROUTE .COMPLEX Qty: 90 3RF Dose Instruction: TAKE 1 TABLET DAILY Rx Instructions: TAKE 1 TABLET DAILY
== END 2024-08-15 11:35 | disposition home or self-care (01) ==
LOC: ANHSURGERY 06:28 → ANHOB2 09:43
PROVIDERS: PCP Family Medicine; Visit Provider Obstetrics & Gynecology
PROC: (CPT 58552; principal; 2024-08-14 07:30)
DX: N81.2 Incomplete uterovaginal prolapse (principal); N94.10 Unspecified dyspareunia; R10.2 Pelvic and perineal pain; N70.11 Chronic salpingitis; N80.03 Adenomyosis of the uterus; N83.8 Other noninflammatory disorders of ovary, fallopian tube and broad ligament; N87.9 Dysplasia of cervix uteri, unspecified; N88.8 Other specified noninflammatory disorders of cervix uteri; I10 Essential (primary) hypertension; E78.2 Mixed hyperlipidemia; E03.9 Hypothyroidism, unspecified; K21.9 Gastro-esophageal reflux disease without esophagitis; J45.909 Unspecified asthma, uncomplicated; E55.9 Vitamin D deficiency, unspecified
CPT/HCPCS: 58552; S2900; 36415; 85025; 88307; A9270; J0690; J1100; J1650; J1885; J2003; J2250; J2405; J2704; J3010; J7030; J7120; J7121

== ENCOUNTER 2024-08-31 14:35 | Outpatient (CLI) | payer BC, SELFPAY ==
--- NOTE | ~2024-08-31 | XR_ITS ---
XR hand LT min 3V Ordering provider: Papo Drew NP History: . M79.642 - Pain in left hand . Comparison: None. FINDINGS: BONES: Boxers fracture is noted with fracture in the distal metaphysis of the fifth metacarpal bone. Angulation is seen in the area of about 90 degrees. No other fractures noted. JOINT SPACES: Well maintained. SOFT TISSUES: Unremarkable. IMPRESSION: Boxer's fracture. Reviewed, dictated and finalized at location A. D OPERATOR IMPRESSION: Boxer's fracture.
== END 2024-08-31 14:36 | disposition home or self-care (01) ==
LOC: MICIMG 14:37
PROVIDERS: PCP Family Medicine
DX: S62.397A Other fracture of fifth metacarpal bone, left hand, initial encounter for closed fracture (principal); X58.XXXA Exposure to other specified factors, initial encounter
CPT/HCPCS: 73130

== ENCOUNTER 2024-09-09 01:23 | Day surgery (SDC) | payer BC, SELFPAY ==
[2024-09-08 10:39] VITALS: BMI 32.7
--- NOTE | 2024-09-08 10:50 | PC.NURSE ---
Report to the Outpatient Waiting Room, entrance under the green pavilion located off [facility], at time _11:30am on date _09/09/24 ____. Planned Procedure Time: _1:30pm .? Time changes happen often and if your time is changed the preop area will call you the afternoon before. - You and your visitor will be asked to self-screen and do not enter if you have any COVID symptoms. Please call surgeon if you need to reschedule. - A mask is optional within the hospital at this time. Patient to have No food from midnight until time of surgery and no smoking. This includes no chewing gum, candy or mints. Take only the following medications with a SIP of water on the morning of surgery: _Levothyroxine w sip H20 Only DO NOT STOP ANY OF YOUR OTHER PRESCRIPTION MEDICATIONS PRIOR TO SURGERY EXCEPT THE FOLLOWING Medications to discontinue per physician ___None Date to take last dose None Please no make-up, nail chinese, hairspray, perfume, deodorant, or body powder the day of surgery.? No jewelry (including any body piercings) or valuables the day of surgery, leave them at home.? Please take a shower or bath the night before, or the morning of, surgery with an antibacterial soap.? Wear comfortable, loose fitting clothing.? - Jewelry must be removed prior to entering the operating room.? Rings and piercings that are not removed may be cut off. - The hospital will not accept responsibility for valuables.? - Please leave all valuables, including medications, at home the day of surgery. If you are going home after surgery, a licensed security patrol driver must drive you home.? - NO public transportation without another adult if you receive anesthesia. - We recommend that an adult stay with you for 24 hours following discharge. - We also recommend that you do not drive, make important decision, drink alcoholic beverages, or take any drugs that were not prescribed by your health care provider for at least 24 hours after your discharge time. Follow any additional instructions given to you from your surgeon. Telephone instructions given to _patient and asked if any additional questions and then verbalized understanding. Patient advised to call surgeon office or pre surgery nurse liaison [phone] if any additional questions.
[2024-09-09] VITALS (8 sets, daily range): BP systolic 113–154; BP diastolic 62–90; PULSE 58–78; RESP 11–18; TEMP 36.1–36.3; O2SAT 100; BMI 33.3
--- NOTE | ~2024-09-09 | XR_ITS ---
EXAMINATION: XR surgery orthopedic DATE: 09/09/2024 12:06 INDICATION: left fifth metacarpal fracture fixation TECHNIQUE: 3 fluoroscopic images of the left hand were obtained during procedure performed by Dr. Josue mireles. Radiologist was not present for the imaging or procedure. The amount of fluoroscopy time use d during this procedure was 0.7 minutes. COMPARISON: 04/30/2024 FINDINGS: Interval reduction and internal cannulated compression screw fixation of the distal diaphys eal fracture of the left fifth metacarpal which is now in near anatomic alignment with minimal residu al palmar angulation. The compression screw has been placed percutaneously over a wire which extends from the dorsal head of the metacarpal across the fifth carpometacarpal joint with distal tip in the hamate. No other fractures identified. Joint spaces are otherwise unremarkable. IMPRESSION: 1. Near-anatomic alignment post closed reduction and compression screw fixation of a boxer's fracture at the distal diaphysis of the left fifth metacarpal. See procedure note for further detail. Reviewed, dictated and finalized at location B. LAYER IMPRESSION: 1. Near-anatomic alignment post closed reduction and compression screw fixation of a boxer's fracture at the distal diaphysis of the left fifth metacarpal. Se nancy procedure note for further detail.
--- NOTE | 2024-09-09 07:01 | WPDHPUPDATE1 ---
History and Physical Update Update Date/Time: 09/09/24 07:01 Patient seen and examined in pre-operative holding area. No interval change in medical history or symptoms. Patient recalls previous discussion of benefits and alternatives to procedure. Continues to desire to proceed with left fifth metacarpal fracture closed possible open reduction and fixation . Reviewed procedure, post-op expectations and risks including but not limited to bleeding, infection, injury to tendon/nerve/vessel, decreased hand function, stiffness, RSD, no change or worsening of symptoms, malunion, nonunion, hardware complications. I discussed the possible use of assistants and their participation in the case. Patient stated understanding and signed the consent form wishing to proceed.
--- NOTE | 2024-09-09 07:02 | P.OP_ITS ---
Procedure Note - Detailed Date of Procedure 09/09/24 Pre-op Diagnosis Left Boxer Fx Post-op Diagnosis Same Procedure Performed ORIF left fifth metacarpal fracture Surgeon Mara Brugess MD Rn Observation milton leon pa-c Anesthesia General Description of Procedure INFORMED CONSENT: The patient was seen and examined and marked in the pre-op area.? The patient signed the consent form. PROCEDURE IN DETAIL:The patient taken back to OR on the stretcher in supine position. Time out performed with anesthesia, surgeon and staff agreeing on patient's name site and surgery to be performed SCDs were placed on the lower extremities and inflated. A tourniquet was placed on {left} upper extremity and antibiotics given IV After anesthesia administered sedation I injected {5}cc 1%lido and 0.5% marcaine plain at the operative site The?{left upper extremity}?was prepped and draped in sterile fashion the??{left upper extremity} was? exsanguinated with Esmarch bandage and tourniquet inflated to 250mmHg The c-arm was draped and brought into the field. multiple views of the fracture were taken and with closed reduction maneuvers I was able to achieve improved reduction of the fracture. The decision was made to proceed with intrametacarpal screw fixation. I proceeded with making a longitudinal incision over the fifth mpjoint through skin and dermis with a 15 blade scalpel. Littler scissors were used to spread down to the extensor tendon and capsule. While holding reduction I was able to place the k-wire in retrograde fashion across the fracture site. Placement was verified on multiple views and live fluoroscopy. a 15 blade scalpel was used tocut down the wire to periosteum and gentle spreading of littler scissors to split the extensor around the wire. I drilled over the wire, measured and placed an arthrex 2.5mm diameter 38mm long intrametacarpal screw in standard fashion. multiple views of fluoro verified screw placement and noting head of screw was subchondral and not directly visualized. There was good maineenance of fracture reduction. normal cascade to digits and no scissoring on unimpinged range of motion. The k-wire was removed and incision irrigated with normal saline. The incision was closed with 4-0 chromic A dressing of dunia, 4x4christophe, and an ulnar gutter splint was applied for patient safety, security, and comfort and secured with an krish bandage after the tourniquet was let down noting the hand was warm and well perfused. The patient was then awaken from anesthesia and transferred to the recovery room in stable condition.? Complications - none EBL- 0cc Disposition - home in stable conditions milton melton pa-c was essential for positioning, retraction, fluoro, closure and dressing placement [facility] Billing Surgery - Charge Forward: Surgery Billing ([id number] same for milton adding modifier )
[2024-09-09] MEDS: LACTATED RINGERS 1,000 ML 30 ML IV CONT ×2 (11:00→12:06)
[2024-09-09] MEDS: ceFAZolin 2 GM/D5W 50 ML 2 GM/50 ML BAG IVPB (11:19)
--- NOTE | 2024-09-09 11:19 | P.PNAN_ITS ---
Anes - Initial Pre Proc Eval Procedure: Operation Date: 09/09/24 13:30 Proposed Procedures p Closed Reduction Percutaneous Pinning, Possible Open Reduction Internal Fixation Left Fifth Metacarpal - Mara Burgess MD Date/Time: 09/09/24 11:19 Surgeon: Mara Burgess MD Pre Op Diagnosis: Left Mehdi Buck Patient Data Age: 49 Gender: F Height: 1.52 m Weight: 77.5 kg Last Vital Signs Temp 97.3 F L 09/09/24 10:35 Pulse 70 09/09/24 10:35 Resp 18 09/09/24 10:35 BP 113/66 09/09/24 10:35 Pulse Ox 100 09/09/24 10:35 Allergies Allergy/AdvReac Type Severity Reaction Status Date / Time Penicillins Allergy Severe Rash Verified 09/09/24 10:43 hydrocodone AdvReac Severe nausea/vomi Verified 09/09/24 10:43 ting ibuprofen AdvReac Intermediate Nausea and Verified 09/09/24 10:43 Vomiting Home Medications Medication Instructions Recorded Confirmed Type cetirizine 10 mg tablet (Zyrtec) 10 mg PO DAILY 09/01/19 09/08/24 History famotidine 20 mg tablet (Pepcid) 20 mg PO QHS #30 tabs 05/01/22 09/08/24 Rx fluticasone propionate 50 1 spray intranasal DAILY 05/16/22 09/08/24 History mcg/actuation nasal spray,suspension (Flonase Allergy Relief) atorvastatin 20 mg tablet 40 mg PO DAILY #90 tabs 11/20/23 09/08/24 Rx levothyroxine 75 mcg tablet See Rx Instructions .Route 04/27/24 09/08/24 Rx .COMPLEX #90 tabs lisinopril 10 See Rx Instructions .Route 04/27/24 09/08/24 Rx mg-hydrochlorothiazide 12.5 mg .COMPLEX #90 tabs tablet clindamycin HCl 300 mg capsule 300 mg PO Q8H #21 caps 09/09/24 Rx oxycodone-acetaminophen 5 mg-325 1 tablet PO Q6H PRN pain #8 tabs 09/09/24 Rx mg tablet Patient hx anesthesia problems: none Family hx anesthesia problems: none Results Review: All pre-operative results and documents have been reviewed as part of the pre- operative evaluation. PMFSH Past Medical History Medical History Acute bronchitis due to other specified organisms Alcohol use Ankle syndesmosis disruption Asthma Bimalleolar fracture of right ankle Blood pressure check BMI 31.0-31.9,adult BMI 38.0-38.9,adult BMI greater than 40 BMI greater than 40 Chronic GERD Dietary counseling and surveillance (07/10/16) Dizziness Elevated blood pressure reading Elevated glucose Encounter for general adult medical examination without abnormal findings Encounter for screening for diabetes mellitus Encounter for wellness examination Essential hypertension Folate deficiency Fracture of proximal end of fibula High cholesterol Hypothyroidism Mixed hyperlipidemia Other abnormality of red blood cells Right upper quadrant abdominal tenderness with rebound tenderness Screening for colon cancer Screening for thyroid disorder Seasonal allergies Vertigo Vision abnormalities Vitamin D deficiency Wheezy bronchitis Family History Family History Mother Hypertension Sibling Hypertension Obesity Grandparent Diabetes mellitus Father , ALS No problems noted. Other Family history of malignant neoplasm of breast Heart disease Social History Social History Smoking status: Never smoker Second hand tobacco smoke exposure: Yes Alcohol intake: current Drinks per week: 2 Substance use: never Substance use type: does not use Do You Feel Safe in your Home?: Yes Lack of Transportation: No Lack of Food: Never True Current Housing: I Have Housing Concerned About Future Housing: No Difficulty Paying Gas/Electric Bills: No Difficulty Paying for Meds: No Currently Unemployed: No Education: High School Diploma/GED Difficulty w/ Childcare or Family Care: No Living arrangements: with family Additional living arrangements comments: Occupation/Education: occupation Additional occupation/education comments: accounting Spiritual care concerns: No Anes - Eval Final PreProcedure Day of Procedure 09/09/24 11:19 Patient weight: obese Heart: regular rate and rhythm Lungs: clear to auscultation Airway: Mallampati scale class II Neurological: alert and oriented Last oral intake: >/= 8 hours ASA classification: III Emergent: no Anesthetic plan: proceed Anesthesia type and monitoring: general LMA and standard monitoring Results Review: All pre-operative results and documents have been reviewed as part of the pre- operative evaluation. HTN, hyperlipidemia, ETOH use, 2 bourbon drinks/nightly. Informed Consent: The patient's anesthetic plan and its attendant risks and benefits were discussed with the patient/family/POA. Questions were solicited and answers provided to the satisfaction of the patient/family/POA.
[2024-09-09] MEDS: LIDOCAINE HCL 1% PF INJ 5 ML VIAL 10 ML INFILTRATE (11:32)
[2024-09-09] MEDS: BUPivacaine HCL 0.5% 10 ML AMP INFILTRATE (11:32)
[2024-09-09] MEDS: fentaNYL CITRATE INJ (*CRX) 100 MCG/2 ML VIAL 25 MCG IV PUSH ×2 (12:23→12:26)
[2024-09-09] MEDS: oxyCODONE/ACETAMINOPHEN (*CRX) 5-325 MG TABLET 1 TABLET PO (13:18)
== END 2024-09-09 13:45 | disposition home or self-care (01) ==
PROVIDERS: PCP Family Medicine; Visit Provider Plastic Surgery
PROC: (CPT 26615; principal; 2024-09-09 13:30)
DX: S62.337A Displaced fracture of neck of fifth metacarpal bone, left hand, initial encounter for closed fracture (principal); W22.09XA Striking against other stationary object, initial encounter; I10 Essential (primary) hypertension; E03.9 Hypothyroidism, unspecified; E78.00 Pure hypercholesterolemia, unspecified; K21.9 Gastro-esophageal reflux disease without esophagitis; E66.9 Obesity, unspecified; Z68.33 Body mass index [BMI] 33.0-33.9, adult
CPT/HCPCS: 26615; 99199; A9270; J0690; J1200; J2003; J2250; J2704; J3010; J7120

== ENCOUNTER 2024-09-22 09:46 | Outpatient (CLI) | payer BC, SELFPAY ==
--- NOTE | ~2024-09-22 | XR_ITS ---
EXAMINATION: XR hand LT min 3V DATE: 09/22/2024 10:07 INDICATION: Left fifth metacarpal fracture. TECHNIQUE: 3 views of left hand were obtained. COMPARISON: Left hand radiographs 08/31/2024 FINDINGS: There is an oblique fracture of neck of fifth metacarpal in near-anatomic alignment with in ternal fixation with a headless screw. Joint spaces are normal. Splint material obscures fine bone de tail. IMPRESSION: 1. Oblique fracture of neck of fifth metacarpal status post open reduction internal fixation. Reviewed, dictated and finalized at location A. T LAYER IMPRESSION: 1. Oblique fracture of neck of fifth metacarpal status post open reduction inte rnal fixation.
== END 2024-09-22 09:47 | disposition home or self-care (01) ==
LOC: ANHIMG 09:51
PROVIDERS: PCP Family Medicine; Visit Provider Physician Assistant Surgical
DX: S62.339D Displaced fracture of neck of unspecified metacarpal bone, subsequent encounter for fracture with routine healing (principal); X58.XXXD Exposure to other specified factors, subsequent encounter
CPT/HCPCS: 73130

== ENCOUNTER 2024-10-12 14:55 | Outpatient (CLI) | payer BC, SELFPAY ==
--- NOTE | ~2024-10-12 | XR_ITS ---
EXAM: XR hand LT min 3V DATE: 10/12/2024 15:08 HISTORY: S62.339A - Displaced fracture of neck of unspecified meta... . COMPARISON: 09/22/2024, 08/31/2024. FINDINGS: Normal mineralization. Status post screw fixation of a fifth metacarpal fracture into near -anatomic alignment. Mature callus is present. No new acute fracture or dislocation. No lytic or je tic lesion. Mild scattered degenerative changes. No erosion or periosteal change. Soft tissues within normal limits. IMPRESSION: Healing left fifth metacarpal fracture. No radiographic evidence of hardware related comp lication. Reviewed, dictated and finalized at location K. RVISING LIBRARIAN IMPRESSION: Healing left fifth metacarpal fracture. No radiographic evidence of hardware related complication.
== END 2024-10-12 14:56 | disposition home or self-care (01) ==
PROVIDERS: PCP Family Medicine; Visit Provider Physician Assistant Surgical
DX: S92.352D Displaced fracture of fifth metatarsal bone, left foot, subsequent encounter for fracture with routine healing (principal); X58.XXXD Exposure to other specified factors, subsequent encounter
CPT/HCPCS: 73130

== ENCOUNTER 2025-03-31 15:03 | Outpatient (CLI) | payer BC, SELFPAY ==
--- NOTE | ~2025-03-31 | MM_ITS ---
EXAMINATION: MM screening reed BI w seema HISTORY: Screening TECHNIQUE: Craniocaudal and mediolateral oblique 3-D tomosynthesis images were obtained and synthetic 2-D images were generated. CAD analysis was submitted and interpreted. COMPARISON: Comparison to multiple prior studies sequentially, with oldest reviewed study dated 05/12. BREAST PARENCHYMAL COMPOSITION: Not Dense. The breasts are almost entirely fatty. FINDINGS: There is no evidence of suspicious mass, calcification, or architectural distortion to sugg est malignancy in either breast. There has been no suspicious interval change. IMPRESSION: 1. No mammographic evidence of malignancy. 2. Recommend routine screening mammography in one year. BI-RADS Category 1: Negative Reviewed, dictated and finalized at location B.
== END 2025-03-31 15:04 | disposition home or self-care (01) ==
LOC: ANHIMG 15:08
PROVIDERS: PCP Family Medicine; Visit Provider Obstetrics & Gynecology
DX: Z12.31 Encounter for screening mammogram for malignant neoplasm of breast (principal)
CPT/HCPCS: 77063; 77067